=== PATIENT | female | born 1980 | race Caucasian/White ===

== ENCOUNTER 2017-07-27 15:23 | Outpatient (CLI) | END 2017-07-27 18:56 | disposition home or self-care (01) ==

== ENCOUNTER 2017-10-26 12:29 | Outpatient (CLI) | END 2017-10-26 13:45 | disposition home or self-care (01) ==

== ENCOUNTER 2017-11-08 10:18 | Outpatient (CLI) | END 2017-11-08 12:58 | disposition home or self-care (01) ==

== ENCOUNTER 2017-11-19 08:46 | Inpatient (IN) | END 2017-11-22 13:28 | disposition home or self-care (01) | DRG 775 ==